=== PATIENT | male | born 1940 | race Caucasian/White ===

== ENCOUNTER 2016-10-08 19:32 | Emergency (ER) | payer OTHER ==
[~2016-10-08] VITALS: Ht 177.8 cm; Wt 78.2 kg
[~2016-10-08 19:32] MED LIST: ACETAMINOPHEN500 MG PO; ACTOS30 MG PO; ADULT LOW DOSE81 M1 PO; ALLOPURINOL300 MG PO; ASPIRIN E.C.81 M1 PO; ATROVENT 0.03%30 ML NS; Ascorbic Acid,Ester- PO; BENZONATATE PO; BENZONATATE200 MG PO; CALCIUM 600+D1 EACH PO; CALCIUM CARB1 TABLET PO; COLACE100 MG PO; COLBENEMID1 TABLET PO; DAILY VALUE1 EACH PO; DUONEB 2.5-0.5 M3 ML IH; ELIQUIS5 MG PO; ESTER-C 1,0001 EACH PO; ESTER-C500 M2 PO; FLOVENT 11120 INHALA IH; Flovent 110 mcg IH; GLIPIZIDE ER2.5 MG PO; GLUCOPHAGE1000 MG PO; Glucophage XR,Fortam PO; K-DUR20 MEQ PO; KLOR-CON 1010 ME1 PO; KLOR-CON M2020 MEQ PO; LANTUS 10100 UNITS/ SC; LANTUS 3 M100 UNITS/ SC; LANTUS 3 M100 UNITS1 SC; LANTUS100 UNIT/1 SQ; LASIX40 MG PO; LEVEMIR FL100 UNIT/1 SC; LEVOCETIRIZINE D5 MG PO; LEVOTHROID112 MCG PO; LEVOXYL112 MCG PO; LISINOPRIL10 MG PO; LO-DOSE ASPIRIN81 M1 PO; LOPRESSOR25 MG PO; LOPRESSOR50 MG PO; LORATADINE10 M2 PO; Levothroid,Synthroid PO; METFORMIN HCL1000 MG PO; METFORMIN HCL500 MG PO; METOPROLOL SUCC25 MG PO; MILK OF MAGNESI10 ML PO; MIRALAX17 GM PO; MUCINEX D ER T1 EACH PO; MULTIVITAMIN1 EAC1 PO; NAPROXEN500 MG PO; NIZORAL 2% CREA15 GM TP; NOVOLOG 10100 UNITS/ SC; NOVOLOG PE100 UNITS/ SC; OMEPRAZOLE20 M3 PO; Oyst-Cal D, Oscal W/ PO; PEPCID20 MG PO; PROBENECID-COL1 EACH PO; Prilosec PO; Robitussin AC,Tussi- PO; SIMVASTATIN40 M1 PO; SIMVASTATIN80 MG PO; TESSALON200 MG PO; THERAGRAN1 TABLET PO; Tessalon Perle PO; Tylenol Extra Streng PO; VALSARTAN80 MG PO; ZYLOPRIM150 MG PO; Zocor PO; Zyloprim PO
[2016-10-08 20:58] LABS: HEMATOCRIT 37.3 % (38.0-50.0); MCHC 33.8 G/DL (30.0-36.0); MCV 97.6 FL (86-99); MEAN PLAT.VOLUME 10.6 uM^3 (9.0-12.4); PLATELET COUNT 107 K/uL (156-360); RED BLOOD COUNT 3.82 M/uL (4.00-5.50); WHITE BLOOD COUNT 7.5 K/uL (4.1-10.2)
[2016-10-08 21:12] LABS: CHLORIDE 98 mEq/L (99-109); POTASSIUM 3.7 mEq/L (3.7-5.4)
[2016-10-08 21:14] LABS: GLUCOSE 150 mg/dL (70-99)
[2016-10-08 21:15] LABS: ANION GAP 8 MEQ/L (2-14)
[2016-10-08 21:16] LABS: TOTAL BILIRUBIN 0.8 mg/dL (0.0-1.0)
[2016-10-08 21:18] LABS: ALKALINE PHOSPHATASE 66 IU/L (3-129); SODIUM 133 mEq/L (136-147)
[2016-10-08 21:19] LABS: UREA NITROGEN (BUN) 28 mg/dL (9-23)
[2016-10-08 21:21] LABS: LIPASE 16 U/L (1.0-51.0)
[2016-10-08 21:28] LABS: GFR ESTIMATE (CALCULATED) > 59 mL/min/
[2016-10-08 22:13] LABS: TROP-I INTERPRETATION NEGATIVE; TROPONIN-I < 0.01 ng/mL (0.0-0.30)
[2016-10-08 22:27] LABS: ADD MIUA? NO; BILIRUBIN NEGATIVE; BLOOD NEGATIVE; COLOR YELLOW ((YELLOW)); GLUCOSE (STRIP) NEGATIVE; KETONES 5; LEUKOCYTES NEGATIVE; NITRITE NEGATIVE; PROTEIN (STRIP) 30; SPECIFIC GRAVITY 1.019 (1.000-1.030); UCUL ADDED? NO
[2016-10-08 23:00] VITALS: BP 154/79
== END 2016-10-08 23:00 | disposition home or self-care (01) ==
LOC: EME → EDBD 19:32 → EME 19:32
PROVIDERS: Emergency Medicine
DX: I95.1 Orthostatic hypotension (principal); W18.11XA Fall from or off toilet without subsequent striking against object, initial encounter; E78.5 Hyperlipidemia, unspecified; I10 Essential (primary) hypertension; E11.9 Type 2 diabetes mellitus without complications; J44.9 Chronic obstructive pulmonary disease, unspecified; Z79.4 Long term (current) use of insulin; Z87.891 Personal history of nicotine dependence
CPT/HCPCS: 71020; 80053; 81003; 83690; 84484; 85027; 93005; 99281; 99284